=== PATIENT | female | born 1975 | race American Indian/Alaskan Native ===

== ENCOUNTER 2018-05-14 16:09 | Inpatient (IN) | payer OTHER ==
[2018-05-14] MEDS ORDERED: Sodium Chloride 0.9% 1,000 ML IV STA (16:34)
--- NOTE | 2018-05-14 16:42 | ED PDOC ---
Arrival/HPI - General Chief Complaint: Abdominal Pain Time Seen by Provider: 05/14/18 16:34 Historian: Patient, EMS - History of Present Illness Narrative History of Present Illness (Text): 05/14/18 16:35 pt p/w 2days onset of not feeling well, started with 5 episodes of vomiting yesterday, with mid-lower abd cramps, pt presented herself to her local ER down in [place]. Pt was evaluated and treated and discharged home; pt was due for a cruise today and while in the boat, pt continue to feel malaise/weak/ generalized fatigue; pt states she has a hard time lifting her arms and legs; pt [facility] her [facility] and was started on fluids and was about to be started on abx but was brought to emergency department for further eval before the abx could be given; pt states ? subjective fever, chills, no sweats, no chest pain/shortness of breath/palpitations, no abd pain/cramps today , + diarrhea x 1-2 episodes yesterday, NON-bloody, no urinary changes, no fall/ trauma/sick contact; pt is here for further eval. pt's without other complaints. pt denied LOC pt felt mild dizziness/lightheadedness, mild headache [place] Pt with hx of asthma; IBS (flares occurring every few months) Time/Duration: < week (2 days) Symptom Onset: Sudden Symptom Course: Unchanged Activities at Onset: Rest Context: Other (on cruise ship) Past Medical History - Provider Review Nursing Documentation Reviewed: Yes - Travel History Have you recently traveled outside [place] w/in the past 3 mons?: No - Past History Past History: Non-Contributing - Infectious Disease Hx of Infectious Diseases: None - Reproductive Currently : Unknown - Cardiac Hx Cardiac Disorders: No - Pulmonary Hx Respiratory Disorders: Yes Hx Asthma: Yes - Neurological Hx Neurological Disorder: No - HEENT Hx HEENT Disorder: No - Renal Hx Renal Disorder: No - Endocrine/Metabolic Hx Endocrine Disorders: No - Hematological/Oncological Hx Blood Disorders: No - Integumentary Hx Dermatological Disorder: No - Musculoskeletal/Rheumatological Hx Musculoskeletal Disorders: No - Gastrointestinal Hx Gastrointestinal Disorders: Yes Hx Gastroesophageal Reflux: Yes - Genitourinary/Gynecological Hx Genitourinary Disorders: No - Psychiatric Hx Psychophysiologic Disorder: Yes Hx Depression: Yes Hx Substance Use: No - Surgical History Hx Tubal Ligation: Yes Family/Social History - Physician Review Nursing Documentation Reviewed: Yes Family/Social History: No Known Family HX Smoking Status: Current Some Days Smoker Hx Alcohol Use: Yes Frequency of alcohol use: Socially Hx Substance Use: No Hx Substance Use Treatment: No Allergies/Home Meds Allergies/Adverse Reactions: Allergies No Known Allergies Allergy (Verified 05/14/18 16:15) Home Medications: Home Meds Medication Instructions Recorded Confirmed Albuterol HFA [Ventolin HFA 90 2 puff NEB Q6 PRN 05/14/18 05/14/18 mcg/actuation (8 g)] Dicyclomine [Bentyl] 20 mg PO DAILY 05/14/18 05/14/18 Pantoprazole Sodium [Protonix] 40 mg PO DAILY 05/14/18 05/14/18 Review of Systems - Review of Systems Constitutional: Fatigue, Fevers Eyes: Normal ENT: Normal. absent: Sore Throat Respiratory: Normal. absent: SOB Cardiovascular: Normal. absent: Chest Pain Gastrointestinal: Abdominal Pain, Diarrhea, Nausea, Vomiting, Appetite Changes Genitourinary Female: Normal Musculoskeletal: Normal Skin: Normal Neurological: Dizziness. absent: Headache Endocrine: Normal Hemo/Lymphatic: Normal Psychiatric: Normal Physical Exam - Physical Exam Narrative Physical Exam (Text): 05/14/18 16:40 General: alert/awake, GCS = 15, oriented x 3, resting in bed, uncomfortable, cooperative, interactive; NAD; very fatigued/weak appearing Head: NC/AT EYE: PERRLA, EOMI, sclera anicteric, no nystagmus, no photophobia; visual field intact b/l Facial: WNL Oral: uvula/tongue are midline, no exudate/lesions, no drooling/stridor, no dysphonia; fair dentitions; DRY oral mucosa NECK: intact ROM, no midline tenderness, no nuchal rigidity, no meningeal signs ; no step off Chest: CTA b/l, no w/r/r; no tachypenia, no accessory muscle use noted Cardiac: +S1, +S2, no m/r/r, no tachycardia Abdominal: +BS, soft/nd/nt, well nourished/morbid obese patient; no masses/ rebound/guarding/rigidity; no cabrera's sign, no mcburney's point tenderness Extremities: intact ROM, strength 5/5 grossly intact in all limbs, neurovasc intact b/l; + ambulatory; reflex +2/2; no pitting edema/swelling b/l; no Gerry' s sign b/l BACK: no step off, no midline tenderness, NO crepitus, no gross deformities noted; Intact ROM SKIN: cap refill ~ 1-2 sec, no ulcerations, no petechiae, no rashes; no gross pallor NEURO: CNII-XII WNL, no facial asymmetries, no slurr speech, oriented x 3 NIH stroke scale ~ 0 Psych: normal insight, flat affect; follows command with ease Vital Signs Reviewed: Yes Vital Signs Temp Pulse Resp BP Pulse Ox 05/14/18 21:05 99.0 F 86 18 118/75 96 05/14/18 17:32 71 18 125/65 99 05/14/18 16:16 99.9 F H 80 17 153/87 H 97 Temperature: Febrile Blood Pressure: Hypertensive Pulse: Regular Respiratory Rate: Normal Appearance: Positive for: Well-Appearing, Ill-Appearing, Uncomfortable. No: Non -Toxic, Comfortable, Unkept Pain Distress: None Mental Status: Positive for: Alert and Oriented X 3 - Systems Exam Head: Present: Atraumatic, Normocephalic Medical Decision Making ED Course and Treatment: 05/14/18 16:40 Impression: general weakness, n/v/d i have consider all the differential diagnosis regarding pt's chief medical complaints/clinical findings, including but are not limited to: r/o infection/ bacteremia, n/v/d, weakness A/P: general weakness, n/v/d - labs - cultures - iv - xray - ct - supportive care - observe/reevaluation 1749 i was notified that nurses have a hard time obtaining blood tests/IV placement i was able to place a 20g IV to right EJ 05/14/181899 pt is currently stable, still feeling very weak and tired/fatigued pt is awaiting her ct results pending final disposition 2049 pt + vomited pt continue to have body malaise and weakness/fatigue pt complains of right neck pain due to IV placement due to pt's continued malaise/weakness complaint, and vomiting, possible IBS flare, will recommend patient for admission paging Dr Ho 05/14/[address] Ho, made aware, agrees with admission/observation pt is made aware of her medical results pt agrees with admission pt states she feels jittery/anxious at the moment Re-evaluation Time: 19:00 Reassessment Condition: Improving,but remains with symptoms - Lab Interpretations Lab Results: 05/14/18 18:10 05/14/18 18:10 Lab Results 05/14/18 18:10: pO2 80 H, VBG pH 7.39, VBG pCO2 44.0, VBG HCO3 26.6, VBG Total CO2 28.0, VBG O2 Sat (Calc) 98.0 H, VBG Base Excess 1.2, VBG Potassium 3.6, Sodium 136.0, Chloride 103.0, Glucose 102, Lactate 0.9, FiO2 21.0, Venous Blood Potassium 3.6 05/14/18 18:10: Sodium 140, Chloride 101, Potassium 3.7, Carbon Dioxide 26, Anion Gap 16, BUN 16, Creatinine 0.7, Est GFR ( Amer) > 60, Est GFR (Non- Af Amer) > 60, Random Glucose 100, Calcium 9.0, Magnesium 2.0, Total Bilirubin 0.3, AST 27, ALT 37, Alkaline Phosphatase 60, Troponin I < 0.01, Total Protein 7.5, Albumin 4.2, Globulin 3.3, Albumin/Globulin Ratio 1.3, Lipase 84 05/14/18 18:10: PT 12.4, INR 1.09 H, APTT 26.9 05/14/18 18:10: WBC 9.2, RBC 4.22, Hgb 10.3 L, Hct 32.7 L, MCV 77.5 L, MCH 24.4 L, MCHC 31.5, RDW 16.4 H, Plt Count 341, MPV 8.4, Gran % 79.5 H, Lymph % (Auto) 13.2 L, [place] % (Auto) 7.3 H, Eos % (Auto) 0.0 L, Baso % (Auto) 0.0, Gran # 7.34 H, Lymph # (Auto) 1.2, [place] # (Auto) 0.7 H, Eos # (Auto) 0.0, Baso # (Auto) 0.00 05/14/18 17:00: Urine Color Yellow, Urine Appearance Sl cloudy, Urine pH 6.0, Ur Specific [place] >= 1.030, Urine Protein 30 H, Urine Glucose (UA) Negative, Urine Ketones 40 H, Urine Blood Large H, Urine Nitrate Negative, Urine Bilirubin Negative, Urine Urobilinogen 0.2, Ur Leukocyte Esterase Negative, Urine RBC 5 - 10, Urine WBC 2 - 5, Ur Epithelial Cells 4 - 5, Urine Bacteria Few I have reviewed the lab results: Yes Interpretation: Abnormal lab values (all labs WNL, abnl Urinalysis - likely menstrual cycle) - RAD Interpretation Narrative RAD Interpretations (Text): 05/14/2018 19:58 Abd/Pelvis CT IMPRESSION: Small fat containing umbilical hernia. Dictator: Nilda Johnson MD 05/14/18 20:56 Chest X-Ray - NAD, prelim result Radiology Orders: 05/14/18 16:35 ABD & PELVIS IV CONTRAST ONLY [CT] Stat 05/14/18 16:45 CHEST TWO VIEWS (PA/LAT) [RAD] Stat Deicer Inspector Pneumatic: ED Physician, Radiologist - EKG Interpretation EKG Interpretation (Text): 05/14/18 20:57 NSR at 85 bpm, normal axis, no ectopy, right atrial enlargement, no st-t changes , BORDERLINE EKG; no old ekg to compare with Interpreted by ED Physician: Yes Type: 12 lead EKG Comparison: No previous EKG avail. - Medication Orders Current Medication Orders: Diphenhydramine HCl (Benadryl) 25 mg IVP STAT STA Stop: 05/14/18 21:15 Sodium Chloride (Sodium Chloride 0.45%) 1,000 mls @ 80 mls/hr IV .[id number] LADONNA Lorazepam (Ativan) 1 mg IVP ONCE ONE PRN Reason: Protocol Stop: 05/14/18 21:15 Discontinued Medications Acetaminophen (Tylenol 325mg Tab) 650 mg PO STAT STA Stop: 05/14/18 16:49 Last Admin: 05/14/18 17:14 Dose: 650 mg Sodium Chloride (Sodium Chloride 0.9%) 1,000 mls @ 1,000 mls/hr IV .Q1H STA Stop: 05/14/18 17:33 Last Admin: 05/14/18 16:58 Dose: 1,000 mls/hr eMAR Start Stop Document 05/14/18 16:58 SF (Rec: 05/14/18 16:58 SF [facility] [id number]) Intravenous Solution Start Date 05/14/18 Start Time 16:58 End Date 05/14/18 End time 17:58 Total Infusion Time 60 Morphine Sulfate (Morphine) 4 mg IVP STAT STA Stop: 05/14/18 20:55 Ondansetron HCl (Zofran Inj) 4 mg IVP STAT STA Stop: 05/14/18 16:35 Last Admin: 05/14/18 16:58 Dose: 4 mg IVP Administration Document 05/14/18 16:58 SF (Rec: 05/14/18 16:58 SF [facility] [id number]) Charges for Administration # of IVP Administrations 1 Ondansetron HCl (Zofran Inj) 4 mg IVP STAT STA Stop: 05/14/18 21:04 Pantoprazole Sodium (Protonix Inj) 40 mg IVP STAT STA Stop: 05/14/18 16:35 Last Admin: 05/14/18 17:14 Dose: 40 mg IVP Administration Document 05/14/18 17:14 SF (Rec: 05/14/18 17:14 SF [facility] [place]) Charges for Administration # of IVP Administrations 1 Disposition/Present on Arrival - Present on Arrival Any Indicators Present on Arrival: No History of DVT/PE: No History of Uncontrolled Diabetes: No Urinary Catheter: No History of Decub. Ulcer: No History Surgical Site Infection Following: None - Disposition Have Diagnosis and Disposition been Completed?: Yes Diagnosis: Intractable nausea and vomiting, Dehydration, Weakness, Diarrhea Disposition: HOSPITALIZED Disposition Time: 21:00 Patient Plan: Admission, Observation Condition: STABLE Discharge Instructions (ExitCare): Weakness (ED) Print Language: JAMAICAN Referrals: PCP,NO [Primary Care Provider] - Follow up with primary Forms: [employer] (Czech)
[2018-05-14 17:28] LABS: URINE BILIRUBIN NEGATIVE (NEGATIVE); URINE BLOOD LARGE (NEGATIVE); URINE GLUCOSE (UA) NEGATIVE (NEGATIVE); URINE LEUKOCYTE ESTERASE NEGATIVE Leu/uL (NEGATIVE); URINE PROTEIN 30 mg/dL (<30 mg/dL); URINE UROBILINOGEN 0.2 E.U./dL (<1 E.U./dL)
[2018-05-14 17:33] LABS: URINE APPEARANCE SL CLOUDY (CLEAR); URINE COLOR YELLOW (YELLOW)
[2018-05-14 17:43] LABS: URINE BACTERIA FEW (NEG)
[2018-05-14 18:21] LABS: GRAN # 7.34 (1.4-6.5); GRAN % 79.5 % (50.0-68.0); HEMOGLOBIN 10.3 g/dL (12.0-16.0); LYMPH # 1.2 (1.2-3.4); LYMPH % 13.2 % (22.0-35.0); MEAN CELL VOLUME 77.5 fl (80.0-105.0); MEAN CORPUSCULAR HEMOGLOBIN 24.4 pg (25.0-35.0); MEAN CORPUSCULAR HGB CONC 31.5 g/dl (31.0-37.0); MEAN PLATELET VOLUME 8.4 fl (7.0-11.0); MONO # 0.7 (0.1-0.6); MONO % 7.3 % (1.0-6.0); RBC 4.22 10^6/uL (3.5-6.1); RED CELL DISTRIBUTION WIDTH 16.4 % (11.5-14.5); WHITE BLOOD COUNT 9.2 10^3/ul (4.5-11.0)
[2018-05-14 18:22] LABS: VENOUS BLOOD GAS BASE EXCESS 1.2 mmol/L (0.0-2.0); VENOUS BLOOD GAS PO2 80 mm/Hg (30-55); VENOUS BLOOD PH 7.39 (7.32-7.43)
[2018-05-14 18:30] LABS: ALB/GLOB RATIO 1.3 (1.1-1.8); ALBUMIN 4.2 g/dL (3.0-4.8); ALT/SGPT 37 U/L (7-56); AST/SGOT 27 U/L (14-36); BLOOD UREA NITROGEN 16 mg/dL (7-21); GFR NON-AFRICAN AMERICAN > 60; LIPASE 84 U/L (23-300)
[2018-05-14 18:34] LABS: INR 1.09 (0.93-1.08); PARTIAL THROMBOPLASTIN TIME 26.9 Seconds (25.1-36.5); PROTHROMBIN TIME 12.4 SECONDS (9.4-12.5)
[2018-05-14 18:41] LABS: TROPONIN I < 0.01 ng/mL
[2018-05-14] MEDS ORDERED: Iohexol 350 MG/100 ML VIAL ONE (19:08)
[2018-05-14] MEDS ORDERED: Morphine 2 mg/ml ISec IVP STA (20:53)
[2018-05-14] MEDS ORDERED: Morphine 4 mg/ml ISec IVP STA (20:54)
[2018-05-14] MEDS ORDERED: DiphenhydrAMINE 50 mg/ml Inj IVP STA (21:14)
[2018-05-14] MEDS: Sodium Chloride 0.45% 1,000 ML IV SCH (22:24)
[2018-05-15 00:54] VITALS: RESP 20; BMI 36.6
[2018-05-15 06:45] LABS: BASO # 0.01 K/mm3 (0.0-2.0); BASO % 0.1 % (0.0-3.0); EOS % 0.3 % (1.5-5.0); GRAN # 4.4 (1.4-6.5); GRAN % 61.4 % (50.0-68.0); HEMOGLOBIN 9.5 g/dL (12.0-16.0); LYMPH # 2.3 (1.2-3.4); LYMPH % 32.6 % (22.0-35.0); MEAN CELL VOLUME 78.5 fl (80.0-105.0); MEAN CORPUSCULAR HGB CONC 30.5 g/dl (31.0-37.0); MEAN PLATELET VOLUME 8.4 fl (7.0-11.0); MONO # 0.4 (0.1-0.6); MONO % 5.6 % (1.0-6.0); RBC 3.96 10^6/uL (3.5-6.1); RED CELL DISTRIBUTION WIDTH 16.5 % (11.5-14.5); WHITE BLOOD COUNT 7.2 10^3/ul (4.5-11.0)
[2018-05-15 07:16] LABS: ALB/GLOB RATIO 1.2 (1.1-1.8); ALBUMIN 3.6 g/dL (3.0-4.8); ALT/SGPT 32 U/L (7-56); AST/SGOT 25 U/L (14-36); BLOOD UREA NITROGEN 15 mg/dL (7-21); CALCIUM 8.3 mg/dL (8.4-10.5); GFR NON-AFRICAN AMERICAN > 60
--- NOTE | 2018-05-15 08:33 | RAD ---
HISTORY: n/v/d, r/o bacteremia COMPARISON: No prior. TECHNIQUE: Chest PA and lateral FINDINGS: LUNGS: No active pulmonary disease. PLEURA: No significant pleural effusion identified. No pneumothorax apparent. CARDIOVASCULAR: Normal. OSSEOUS STRUCTURES: No significant abnormalities. VISUALIZED UPPER ABDOMEN: Normal. OTHER FINDINGS: None. IMPRESSION: No active disease.
[2018-05-15] MEDS: Morphine 2 mg/ml ISec IVP PRN ×2 (10:14→15:00)
[2018-05-15] MEDS ORDERED: Albuterol-Ipratrop 3 mg / 0.5 (3 ml) UD ONE (10:32)
[2018-05-15 10:49] LABS: ARTERIAL BLOOD GAS O2 SAT 97.6 % (95-98); ARTERIAL BLOOD GAS PCO2 57 mm/Hg (35-45); ARTERIAL BLOOD GAS PH 7.25 (7.35-7.45); ARTERIAL BLOOD GAS TCO2 26.7 mmol.L (22-28)
[2018-05-15] MEDS: Levalbuterol 0.63 MG/3 ML Inhal Soln UD IH SCH ×3 (11:03→20:55)
--- NOTE | 2018-05-15 11:04 | CP.PCM.CON ---
<Darinel Jacome - Last Filed: 05/15/18 10:57> History of Present Illness - History of Present Illness History of Present Illness: PGY5 GI Fellow Consult Note Patient is a 42yo female with PMHx significant for asthma and IBS who presented to the ED from a cruise ship for nausea, vomiting and abdominal pain. The patient lives outside of [place] and is established with providers in that area. She had not been feeling well since Wednesday (2 days [employer]) with diffuse abdominal cramping, nausea/vomiting and was seen and evaluated at a hospital in [place] where she states she was given Haldol and Ativan (medications per patient with no known psych history) and discharged home. She felt very fatigued for the next day and slept on and off for several hours. Thinking she was well enough to go on a cruise, she drove to [place] and boarded her ship. On board, she felt ill and went to the [facility] who recommended patient be evaluated at our facility. Denies any fever, chills, diarrhea, weight loss, rectal bleeding, dysuria. 12 system ROS performed and negative except where stated. PMHx: See HPI PSHx: tubal ligation FHx: Discussed with patient and she denies any significant family history Social: Denies tobacco, EtOH or illicit drug use Endo: Colonoscopy 3 years ago - unremarkable per patient; EGD in past year - unremarkable per patient Past Patient History - Infectious Disease Hx of Infectious Diseases: None - Past Social History Smoking Status: Current Some Days Smoker - CARDIAC Hx Cardiac Disorders: No - PULMONARY Hx Respiratory Disorders: Yes Hx Asthma: Yes - NEUROLOGICAL Hx Neurological Disorder: No - HEENT Hx HEENT Problems: No - RENAL Hx Chronic Kidney Disease: No - ENDOCRINE/METABOLIC Hx Endocrine Disorders: No - HEMATOLOGICAL/ONCOLOGICAL Hx Blood Disorders: No - INTEGUMENTARY Hx Dermatological Problems: No - MUSCULOSKELETAL/RHEUMATOLOGICAL Hx Musculoskeletal Disorders: No Hx Falls: No - GASTROINTESTINAL Hx Gastrointestinal Disorders: Yes Hx Gastroesophageal Reflux: Yes - GENITOURINARY/GYNECOLOGICAL Hx Genitourinary Disorders: No - PSYCHIATRIC Hx Psychophysiologic Disorder: Yes Hx Depression: Yes Hx Substance Use: No - SURGICAL HISTORY Hx Surgeries: Yes Meds Allergies/Adverse Reactions: Allergies Allergy/AdvReac Type Severity Reaction Status Date / Time No Known Allergies Allergy Verified 05/14/18 16:15 - Medications Medications: Current Medications Sodium Chloride (Sodium Chloride 0.45%) 1,000 mls @ 80 mls/hr IV .[id number] [facility] Last Admin: 05/14/18 22:24 Dose: 80 mls/hr Ketorolac Tromethamine (Toradol) 30 mg IVP Q6 PRN PRN Reason: Pain, moderate (4-7) Last Admin: 05/15/18 09:10 Dose: 30 mg Levalbuterol HCl (Xopenex) 0.63 mg IH [id number] [facility] Methylprednisolone (Solu-Medrol) 40 mg IVP Q8 [facility] Morphine Sulfate (Morphine) 1 mg IVP Q4H PRN PRN Reason: Pain, moderate (4-7) Last Admin: 05/15/18 10:14 Dose: 1 mg Pantoprazole Sodium (Protonix Inj) 40 mg IVP DAILY [facility] Last Admin: 05/15/18 10:15 Dose: 40 mg Physical Exam - Constitutional Appears: Non-toxic, No Acute Distress Additional comments: obese - Eye Exam Eye Exam: EOMI, PERRL - ENT Exam ENT Exam: Mucous Membranes Moist - Respiratory Exam Respiratory Exam: Clear to Auscultation Bilateral. absent: Rales, Rhonchi, Wheezes - Cardiovascular Exam Cardiovascular Exam: RRR, +S1, +S2 - GI/Abdominal Exam GI & Abdominal Exam: Normal Bowel Sounds, Soft. absent: Distended, Firm, Guarding, Mass, Organomegaly, Rigid, Tenderness - Extremities Exam Extremities exam: Positive for: normal inspection. Negative for: pedal edema - Neurological Exam Neurological exam: Alert, Oriented x3 - Psychiatric Exam Psychiatric exam: Normal Affect, Normal Mood - Skin Skin Exam: Dry, Warm Results - Vital Signs Recent Vital Signs: Last Vital Signs Temp 98.4 F 05/15/18 06:00 Pulse 84 05/15/18 06:00 Resp 20 05/15/18 06:00 BP 113/64 05/15/18 06:00 Pulse Ox 96 05/15/18 06:00 - Labs Result Diagrams: 05/15/18 06:00 05/15/18 06:00 Labs: Laboratory Results - last 24 hr 05/15/18 05/15/18 05/15/18 06:00 06:00 10:31 WBC 7.2 D RBC 3.96 Hgb 9.5 L Hct 31.1 L MCV 78.5 L MCH 24.0 L MCHC 30.5 L RDW 16.5 H Plt Count 327 MPV 8.4 Gran % 61.4 Lymph % (Auto) 32.6 [place] % (Auto) 5.6 Eos % (Auto) 0.3 L Baso % (Auto) 0.1 Gran # 4.40 Lymph # (Auto) 2.3 [place] # (Auto) 0.4 Eos # (Auto) 0.0 Baso # (Auto) 0.01 pCO2 pO2 HCO3 ABG pH ABG Total CO2 ABG O2 Saturation ABG Base Excess ABG Potassium Glucose Lactate FiO2 Sodium 140 Potassium 3.6 Chloride 104 Carbon Dioxide 27 Anion Gap 13 BUN 15 Creatinine 0.7 Est GFR ( Amer) > 60 Est GFR (Non-Af Amer) > 60 POC Glucose (mg/dL) 114 H Random Glucose 85 Calcium 8.3 L Total Bilirubin 0.3 AST 25 ALT 32 Alkaline Phosphatase 46 Total Protein 6.5 Albumin 3.6 Globulin 2.9 Albumin/Globulin Ratio 1.2 Arterial Blood Potassium 05/15/18 10:40 WBC RBC Hgb Hct MCV MCH MCHC RDW Plt Count MPV Gran % Lymph % (Auto) [place] % (Auto) Eos % (Auto) Baso % (Auto) Gran # Lymph # (Auto) [place] # (Auto) Eos # (Auto) Baso # (Auto) pCO2 57 H pO2 82.0 HCO3 25.0 ABG pH 7.25 L ABG Total CO2 26.7 ABG O2 Saturation 97.6 ABG Base Excess -3.1 L ABG Potassium 3.0 L Glucose 125 H Lactate 0.9 FiO2 35.0 Sodium 142.0 Potassium Chloride 110.0 H Carbon Dioxide Anion Gap BUN Creatinine Est GFR ( Amer) Est GFR (Non-Af Amer) POC Glucose (mg/dL) Random Glucose Calcium Total Bilirubin AST ALT Alkaline Phosphatase Total Protein Albumin Globulin Albumin/Globulin Ratio Arterial Blood Potassium 3.0 L Assessment & Plan - Assessment and Plan (Free Text) Assessment: Patient is a 42yo female with PMHx significant for asthma and IBS who presented to the ED from a cruise ship for nausea, vomiting and abdominal pain -Abdominal pain, resolved Plan: -Patient's abdominal pain has resolved at time of examination -She is requesting diet order - will give regular diet now -CT and lab work reviewed - unremarkable per my interpretation -OK for D/C from GI standpoint with outpatient follow up as needed with patient' s GI in [place] - Date & Time Date: 05/15/18 Time: 07:00 <IvaOmari - Last Filed: 05/15/18 18:42> Meds - Medications Medications: Current Medications Sodium Chloride (Sodium Chloride 0.45%) 1,000 mls @ 80 mls/hr IV .[id number] [facility] Last Admin: 05/15/18 18:17 Dose: 80 mls/hr Ketorolac Tromethamine (Toradol) 30 mg IVP Q6 PRN PRN Reason: Pain, moderate (4-7) Last Admin: 05/15/18 16:03 Dose: 30 mg Levalbuterol HCl (Xopenex) 0.63 mg IH [id number] [facility] Last Admin: 05/15/18 11:03 Dose: 0.63 mg Lorazepam (Ativan) 0.5 mg PO Q8 PRN; Protocol PRN Reason: Anxiety Last Admin: 05/15/18 13:24 Dose: 0.5 mg Methylprednisolone (Solu-Medrol) 40 mg IVP Q8 [facility] Last Admin: 05/15/18 14:31 Dose: 40 mg Morphine Sulfate (Morphine) 1 mg IVP Q4H PRN PRN Reason: Pain, moderate (4-7) Last Admin: 05/15/18 15:00 Dose: 1 mg Pantoprazole Sodium (Protonix Inj) 40 mg IVP DAILY [facility] Last Admin: 05/15/18 10:15 Dose: 40 mg Results - Vital Signs Recent Vital Signs: Last Vital Signs Temp 98.4 F 05/15/18 06:00 Pulse 84 05/15/18 06:00 Resp 20 05/15/18 06:00 BP 113/64 05/15/18 06:00 Pulse Ox 96 05/15/18 06:00 - Labs Result Diagrams: 05/15/18 06:00 05/15/18 06:00 Attending/Attestation - Attestation I have personally seen and examined this patient.: Yes I have fully participated in the care of the patient.: Yes I have reviewed all pertinent clinical information: Yes Notes (Text): 05/15/18 18:41 42 year old female who presents with nausea, vomiting and abdominal pain, now resolved. CT unremarkable. Continue PPI. diet as tolerated. Will sign off.
--- NOTE | 2018-05-15 11:06 | PCM.RRT ---
<Sobia Arias - Last Filed: 05/15/18 10:54> [facility] [facility] Nurse Assessment - Situation Date: 05/15/18 Time [facility] was called: 10:27 [employer] Responder Arrival Time: 10:30 [employer] Location:: [address] [place] [address] Room Number: [id number] [facility] Reason for Call: Respiratory Distress [facility] Called By: RN - IV IV Inserted during [facility]?: No - Respiratory Oxygen Delivery Method: Room Air Received Nebulizer Treatments:: Yes - Medication Medications Administered During [facility]: SoluMedrol 125mg IVP, Duoneb 3ml inh x 2 - Diagnostic Test Ordered EKG: Yes Chest X-Ray: Yes CT Scan: No Other Diagnostic Test Ordered: ABG SHOCK, DRUG SCREEN, ALCOHOL, CARDIO, DDIMER - Stat Labs Ordered [facility] Stat Labs Ordered: CBC, BMP, TROPONIN, LACTIC ACID, ABG CPR started during [facility]?: No - Vital Signs Vital Sign: Rapid Response Vital Sign Blood Pressure 116/63 Pulse Rate 125 Oxygen Saturation 88 - Finger Stick Blood Glucose Finger Stick Blood Glucose: 114 - Time [facility] Ended Time [facility] Ended: 10:50 - Vital Signs at end of [employer] Vital Signs at end of [employer] [facility]: Rapid Response End Vital Sign Blood Pressure 131/84 Pulse Rate 120 Respiratory Rate 20 O2 Sat by Pulse Oximetry 95 - Recommendations Notifications: Attending Physician - Neurological Status (Select all that apply): Alert - Respiratory Oxygen Delivery Method: Nasal Cannula @L/min (3.5L) - Constitutional Appears: In Acute Distress (SOB) - Head Head Exam: ATRAUMATIC, NORMAL INSPECTION, NORMOCEPHALIC - Eyes Eye Exam: EOMI, Normal appearance, PERRL. absent: Conjunctival injection, Scleral icterus - Respiratory Exam Respiratory Exam: Wheezes, Respiratory Distress. absent: Accessory Muscle Use, Rales, Rhonchi - Cardiovascular Exam Cardiovascular Exam: Tachycardia, +S1, +S2. absent: Murmur - GI/Abdominal Exam GI & Abdominal Exam: Soft - Neurological Exam Neurological Exam: Alert, Awake, Oriented x3 - Extremities Exam Extremities Exam: Normal Inspection. absent: Calf Tenderness, Pedal Edema Plan - Assessment of Findings&Treatment Plan [facility] [facility] called as patient was acutely SOB this AM. House doc, attending physicians, and residents prosthodontist responded immediately. Patient was sitting up in bed complaining of shortness of breath and audibly wheezing. Patient was given 2 stat treatments of Duoneb and given 125mg solumedrol. STAT labs and CXR were ordered. Patient's ABG was evidnet of respiratory acidosis. PMD Dr. Ho was contacted who ordered Xopenex q4 and Solumedrol [address] Silverman consulted. Vitals at end of [facility] [facility]: BP 134/84 HR 128 O2 95%. Patient was also complaining of anxiety and was given one dose of 0.25mg xanax. <Sathya Carrillo - Last Filed: 05/15/18 13:39> [facility] [facility] Nurse Assessment - Vital Signs Vital Sign: Rapid Response Vital Sign Blood Pressure 116/63 Pulse Rate 125 Oxygen Saturation 88 - Vital Signs at end of [employer] [facility] Vital Signs at end of [facility]: Rapid Response End Vital Sign Blood Pressure 131/84 Pulse Rate 120 Respiratory Rate 20 O2 Sat by Pulse Oximetry 95 Attending/Attestation - Attestation I have personally seen and examined this patient.: Yes I have fully participated in the care of the patient.: Yes I have reviewed all pertinent clinical information, including history, physical exam and plan: Yes Notes (Text): 05/15/18 13:34 [facility] called for shortness of breath. +Wheezing and tachycardia on exam. HR 125. O2 on RA 88. CXR/ABG ordered. Xopenex and steroids. D-dimer also ordered. PMD notified. Pulmonary evaluation was requested. Discharge is held for now.
[2018-05-15 11:55] LABS: TROPONIN I < 0.01 ng/mL
--- NOTE | 2018-05-15 13:42 | CARD ---
APPROVED REPORT EKG Measurement Heart [id number] <Conclusion> Sinus tachycardia Otherwise normal ECG
--- NOTE | 2018-05-15 13:46 | CARD ---
APPROVED REPORT EKG Measurement Heart [id number] CT 136P71 [id number] <Conclusion> Normal sinus rhythm Right atrial enlargement Borderline ECG
[2018-05-15] MEDS: MethylPREDNISolone 40 mg Vial IVP SCH ×2 (14:31→22:02)
--- NOTE | 2018-05-15 15:49 | RAD ---
HISTORY: SOB RAPIDRES COMPARISON: No comparison chest 05/14/2018 FINDINGS: LUNGS: No active pulmonary disease. PLEURA: No significant pleural effusion identified, no pneumothorax apparent. CARDIOVASCULAR: Normal. OSSEOUS STRUCTURES: No significant abnormalities. VISUALIZED UPPER ABDOMEN: Normal. OTHER FINDINGS: None. IMPRESSION: No active disease.
--- NOTE | 2018-05-15 16:50 | CT ---
PROCEDURE: CT Abdomen and Pelvis with contrast HISTORY: Abdominal pain, n/v/d COMPARISON: None. TECHNIQUE: Contiguous helical/ transaxial sections of the and pelvis performed following injection of approximately 95 cc Omnipaque 350 contrast material. Additional 2D sagittal and coronal reformats provided. Radiation dose: Total exam DLP = 1173.16 mGy-cm. This CT exam was performed using one or more of the following dose reduction techniques: Automated exposure control, adjustment of the mA and/or kV according to patient size, and/or use of iterative reconstruction technique. FINDINGS: LOWER THORAX: Mild atelectasis/ scarring changes left lingular region. Lung bases otherwise clear. Heart size upper limits of normal. No significant pericardial effusion. Tiny hiatal hernia. LIVER: Liver is enlarged measuring over 20 cm in CC dimension. No obvious hepatic mass collection or calcification. Minimal fatty hepatic infiltration. GALLBLADDER AND BILE DUCTS: Gallbladder physiologically distended. No evidence of intraluminal gallbladder calculi. PANCREAS: Unremarkable. No gross lesion or ductal dilatation. SPLEEN: Unremarkable. ADRENALS: No adrenal lesions. KIDNEYS AND URETERS: Kidneys demonstrate symmetric nephrograms. No evidence of nephrolithiasis or hydronephrosis. VASCULATURE: Unremarkable. No aortic aneurysm. BOWEL: Unremarkable. No obstruction. No gross mural thickening. APPENDIX: Normal appendix PERITONEUM: Unremarkable. No free fluid. No free air. There is mild diastases of the mid anterior abdominal wall associated with a small fat containing umbilical hernia. LYMPH NODES: Unremarkable. No enlarged lymph nodes. BLADDER: Mild bladder wall thickening likely due to incomplete urinary bladder distention however Clinical correlation to rule out cystitis. REPRODUCTIVE: Uterus exhibits somewhat lobular contour with what appears represent small hyperdense fibroid along the left fundal/body junction and another in the right lower uterine segment. The cervix is somewhat bulbous in contour is well. Follow-up pelvic ultrasound recommended for further evaluation. BONES: Minor arm multilevel degenerative spondylosis. No acute compression fractures. OTHER FINDINGS: None. IMPRESSION: Mild hepatomegaly. Suspect uterine fibroids with slight bulbous appearance of the cervix. Recommend followup pelvic ultrasound. Mild diastases of the mid anterior abdominal wall associated with a small fat containing umbilical hernia.
[2018-05-15] MEDS: Sodium Chloride 0.45% 1,000 ML IV SCH (18:17)
--- NOTE | 2018-05-15 19:24 | HP ---
HISTORY OF PRESENT ILLNESS: I was called to the ER to see Nehal. She was on a cruise ship. She had five episodes of vomiting the other day, abdominal cramps. She went to the emergency room and felt drowsier. She was treated, discharged home, was supposed to be on a cruise ship today, got very fatigued that happened again. She got very tired of even lifting her luggage. She started to go on board and could not do it. She ended up in our emergency room with diarrhea and episodes of nausea, vomiting, and cramping, nonbloody and we kept her overnight in observation status, as our plan with IV fluids, medications and n.p.o. because she is throwing up and antianxiety medication. PAST MEDICAL HISTORY: Asthma, irritable bowel syndrome, and flare-ups every few months. This is a sudden onset of this. She has gastroesophageal reflux. She also has a history of depression. She has a history of tubal ligation. FAMILY HISTORY: No known family history. SOCIAL HISTORY: She still smokes cigarettes. Occasional alcohol. No substance abuse. ALLERGIES: NO KNOWN DRUG ALLERGY. MEDICATIONS: She is on albuterol as needed, Bentyl, and Protonix as needed. REVIEW OF SYSTEMS: She is very tired as she had fevers. No vision changes, no hearing changes, no sore throat, no shortness of breath, no cough, no chest pain, no palpitations. She has abdominal pain. She had diarrhea. She had nausea and vomiting. She has appetite changes, abdominal cramping. No problems urinating. For the most part of skin is intact, she says no rashes or ulcers. She is a little bit dizzy from all the throwing up, but no headache. No anxiety or depression. PHYSICAL EXAMINATION: GENERAL: She has a 99 temperature, 80 pulse, 17 respiratory rate, 153/87 blood pressure, and 97% O2 sat on room air. GENERAL: She is alert and oriented x3. Cranial nerves II through XII grossly intact. HEENT: Head is atraumatic and normocephalic. Extraocular muscles are intact. Pupils are equally reactive to light and accommodation. Throat is dry. NECK: Supple. HEART: Regular rate. Normal S1 and S2. LUNGS: Decreased breath sounds, but clear to auscultation. No wheezing, no rhonchi, no rales. ABDOMEN: Mildly distended. There are bowel sounds, but they are high pitched and distant, but no guarding, no rebound, a little bit discomfort from cramping. EXTREMITIES: No edema. Good range of motion. NEUROLOGIC: Cranial nerves II through XII grossly intact. Normal speech. Normal neurological exam. Normal insight and understands what is going on. She is here for intractable nausea, vomiting, weakness, history of IBS with abdominal cramping. For nausea and vomiting, she will be put in for viral gastroenteritis type of picture, IV fluids, n.p.o., Protonix. We are going to watch her overnight and see how she does and if she does well, we will discharge her. Praveen Ho DO MTDD
[2018-05-15 19:45] LABS: BENZODIAZEPINES, UR NEGATIVE (NEGATIVE)
[2018-05-15 19:46] LABS: BARBITURATES, UR NEGATIVE (NEGATIVE); OPIATES, UR POSITIVE (NEGATIVE); PHENCYCLIDINE, UR NEGATIVE (NEGATIVE)
[2018-05-16] MEDS: Levalbuterol 0.63 MG/3 ML Inhal Soln UD IH SCH ×6 (01:15→21:55)
[2018-05-16] MEDS: MethylPREDNISolone 40 mg Vial IVP SCH ×3 (06:16→21:07)
[2018-05-16 08:10] LABS: ARTERIAL BLOOD GAS HCO3 26.6 mmol/L (21-28); ARTERIAL BLOOD GAS HEMOGLOBIN 9.8 g/dL (11.7-17.4); ARTERIAL BLOOD GAS O2 CAPACITY 13.6 mL/dl (16-24); ARTERIAL BLOOD GAS O2 SAT 95.9 % (95-98); ARTERIAL BLOOD GAS PCO2 41 mm/Hg (35-45); ARTERIAL BLOOD GAS PH 7.42 (7.35-7.45); ARTERIAL BLOOD GAS TCO2 27.9 mmol.L (22-28)
--- NOTE | 2018-05-16 09:17 | PN ---
DATE: 05/15/2018 She had blood tests done, it was 9.2 white count, 10.3 hemoglobin, 32.7 hematocrit with 341 platelets. She has a lactate of 0.9. She had sodium 140, potassium 3.7, BUN 16, creatinine 0.7, calcium is 9, magnesium 2, total bili is 0.3, AST is 27, ALT is 37, alk phos is 60. Troponin I is less than 0.01, total protein 7.5 and the urine was trace blood. She had a chest x-ray and had CAT scan of the abdomen and pelvis that was pending. So I saw her this morning. This is the next day. She is doing well, sitting up in bed. She is hungry. No more nausea, vomiting. No more abdominal pain. No more diarrhea. She is in good spirits. PHYSICAL EXAMINATION: VITAL SIGNS: She has 98.4 temperature, 84 pulse, 113/64 blood pressure, 20 respiratory rate, 96% O2 sat on room air. HEENT: Head is atraumatic, normocephalic. HEART: Regular rate. LUNGS: Decreased breath sounds, but clear. ABDOMEN: Soft, obese, nontender. Positive bowel sounds. No guarding, no rebound or CVA tenderness. EXTREMITIES: No edema. A very good exam. She is on Protonix IV and IV fluids. I think it made a big difference. She had lab today, was at 7.2 white count, 9.5 hemoglobin, 31.1 hematocrit with 327 platelets. She has 140 sodium, potassium 3.6, BUN 15, creatinine 0.7, GFR is greater than 60, sugar is 85, calcium is 8.3, total bili is 0.3, AST is 25, ALT is 32, alk phos 46, total protein 6.5. So, my plan is if the chest x-ray and abdominal CAT scan are negative, which I assume they are from the ER doctor's notes, I will discharge her later today after she eats breakfast. She is now on a regular diet. I will await a call from the nursing later letting me know about the CAT scan, chest x-ray results and also how she did eating. If she is not throwing up, I will discharge her later today and this is hopefully a discharge summary on Nehal Dilip, who came in for viral gastroenteritis. Praveen oH DO [facility] # [id number]
[2018-05-16] MEDS: Sodium Chloride 0.45% 1,000 ML IV SCH (09:35)
--- NOTE | 2018-05-16 11:33 | CT ---
PROCEDURE: CT Chest with contrast (Pulmonary Angiogram) HISTORY: Elevated D Dimer COMPARISON: None available. TECHNIQUE: Axial computed tomography images were obtained of the chest in the pulmonary arterial phase of enhancement. Coronal and sagittal reformatted images were created and reviewed. Intravenous contrast dose: Radiation dose: Total exam DLP = mGy-cm. This CT exam was performed using one or more of the following dose reduction techniques: Automated exposure control, adjustment of the mA and/or kV according to patient size, and/or use of iterative reconstruction technique. FINDINGS: PULMONARY ARTERIES: Unremarkable. No pulmonary embolism. AORTA: No acute findings. No thoracic aortic aneurysm. LUNGS: Unremarkable. No nodule, mass or pulmonary consolidation. PLEURAL SPACES: Unremarkable. No effusion or pneuomothorax. HEART: Unremarkable. No cardiomegaly. No significant pericardial effusion. LYMPH NODES: No lymphadenopathy. BONES, CHEST WALL: Unremarkable. No fracture or destructive lesion OTHER FINDINGS: Unremarkable. IMPRESSION: Unremarkable CT pulmonary angiogram. No pulmonary embolus.
--- NOTE | 2018-05-16 12:13 | PN ---
DATE: 05/16/2018 I saw her sitting up in bed. She has oxygen on. She is getting DuoNebs. She is on IV fluids at 80 mL an hour. She has got Ativan; morphine for pain, which I will decrease; Protonix. She is on Solu-Medrol 30 now, Toradol and Xopenex. She came in with a viral gastritis picture and within 24 hours after increasing her food to try and discharge her, she went in to acute asthma, COPD, anxiety, pain, nausea and vomiting. So here we are, back to sitting in bed, feeling good again, but she is on n.p.o. with clear fluids. I am not going to increase the diet until GI states. I will decrease the pain medications, Solu-Medrol as per the welding supervisor. She has a 140 sodium, potassium 3.6, BUN 50, creatinine 0.7. The last sugar was 94. Troponin was less than 0.01. She has a 7.2 white count, 9.5 hemoglobin and 327 platelets. She is having multiple issues now. Also, she is going through a whole lot of anxiety. I am going to see what GI has to say about her nausea and vomiting and get their opinion. She was on a cruise ship and she is here with nausea, vomiting, viral gastroenteritis, acute COPD, asthma, anxiety. We will see how she does, hopefully one more day. Praveen Ho DO
--- NOTE | 2018-05-16 12:43 | CP.PCM.PN ---
<NaaDarinel - Last Filed: 05/16/18 12:40> Subjective - Date & Time of Evaluation Date of Evaluation: 05/16/18 Time of Evaluation: 12:00 - Subjective Subjective: PGY5 GI Fellow Progress Note Patient seen and examined bedside this afternoon. After our evaluation yesterday , patient developed SOB and felt very anxious, may have had panic attack. She was started on breathing treatment and steroid treatment. She had nausea last night and vomited once. Patient states she is feeling very well and is eager to go home. She is also eager to eat more solid food. Denies any nausea at this time. 12 system ROS performed and negative except where stated. Objective - Vital Signs/Intake and Output Vital Signs (last 24 hours): Temp Pulse Resp BP Pulse Ox 98.4 F 64 20 123/63 97 05/16/18 06:00 05/16/18 06:00 05/16/18 06:00 05/16/18 06:00 05/16/18 06:00 Intake and Output: 05/16/18 05/16/18 06:59 18:59 Intake Total 0 Balance 0 - Medications Medications: Current Medications Sodium Chloride (Sodium Chloride 0.45%) 1,000 mls @ 80 mls/hr IV .[id number] [facility] Last Admin: 05/16/18 09:35 Dose: 80 mls/hr Ketorolac Tromethamine (Toradol) 30 mg IVP Q6 PRN PRN Reason: Pain, moderate (4-7) Last Admin: 05/15/18 16:03 Dose: 30 mg Levalbuterol HCl (Xopenex) 0.63 mg IH [id number] [facility] Last Admin: 05/16/18 11:59 Dose: 0.63 mg Lorazepam (Ativan) 0.5 mg PO Q8 PRN; Protocol PRN Reason: Anxiety Last Admin: 05/16/18 00:04 Dose: 0.5 mg Methylprednisolone (Solu-Medrol) 30 mg IVP Q12 [facility] Last Admin: 05/16/18 09:30 Dose: Not Given Pantoprazole Sodium (Protonix Inj) 40 mg IVP DAILY [facility] Last Admin: 05/15/18 10:15 Dose: 40 mg - Labs Labs: PT 12.4 SECONDS (9.4-12.5) 05/14/18 18:10 INR 1.09 (0.93-1.08) H 05/14/18 18:10 APTT 26.9 Seconds (25.1-36.5) 05/14/18 18:10 - Constitutional Appears: Non-toxic, No Acute Distress - Eye Exam Eye Exam: EOMI, PERRL - ENT Exam ENT Exam: Mucous Membranes Moist - Respiratory Exam Respiratory Exam: Wheezes. absent: Clear to Ausculation Bilateral, Rales, Rhonchi - Cardiovascular Exam Cardiovascular Exam: RRR, +S1, +S2 - GI/Abdominal Exam GI & Abdominal Exam: Soft, Normal Bowel Sounds. absent: Distended, Firm, Guarding, Rigid, Tenderness, Organomegaly - Extremities Exam Extremities Exam: Normal Inspection. absent: Pedal Edema - Neurological Exam Neurological Exam: Alert, Awake, Oriented x3 - Psychiatric Exam Psychiatric exam: Normal Affect, Normal Mood - Skin Skin Exam: Dry, Warm Assessment and Plan - Assessment and Plan (Free Text) Assessment: Patient is a 42yo female with PMHx significant for asthma and IBS who presented to the ED from a cruise ship for nausea, vomiting and abdominal pain -Abdominal pain and nausea/vomiting Plan: -Patient's abdominal pain has resolved at time of examination and she is eager to eat -Recommend advancing diet to regular diet - bland food, no citrus -OK for D/C from GI standpoint with outpatient follow up as needed with patient' s GI in [place] <Greg Sotelo - Last Filed: 05/16/18 13:27> Objective - Vital Signs/Intake and Output Vital Signs (last 24 hours): Temp Pulse Resp BP Pulse Ox 98.4 F 64 20 123/63 97 05/16/18 06:00 05/16/18 06:00 05/16/18 06:00 05/16/18 06:00 05/16/18 06:00 Intake and Output: 05/16/18 05/16/18 06:59 18:59 Intake Total 0 Balance 0 - Medications Medications: Current Medications Sodium Chloride (Sodium Chloride 0.45%) 1,000 mls @ 80 mls/hr IV .[id number] [facility] Last Admin: 05/16/18 09:35 Dose: 80 mls/hr Ketorolac Tromethamine (Toradol) 30 mg IVP Q6 PRN PRN Reason: Pain, moderate (4-7) Last Admin: 05/15/18 16:03 Dose: 30 mg Levalbuterol HCl (Xopenex) 0.63 mg IH [id number] [facility] Last Admin: 05/16/18 11:59 Dose: 0.63 mg Lorazepam (Ativan) 0.5 mg PO Q8 PRN; Protocol PRN Reason: Anxiety Last Admin: 05/16/18 00:04 Dose: 0.5 mg Methylprednisolone (Solu-Medrol) 30 mg IVP Q12 [facility] Last Admin: 05/16/18 09:30 Dose: Not Given Pantoprazole Sodium (Protonix Inj) 40 mg IVP DAILY [facility] Last Admin: 05/16/18 09:30 Dose: 40 mg - Labs Labs: PT 12.4 SECONDS (9.4-12.5) 05/14/18 18:10 INR 1.09 (0.93-1.08) H 05/14/18 18:10 APTT 26.9 Seconds (25.1-36.5) 05/14/18 18:10 Attending/Attestation - Attestation I have personally seen and examined this patient.: Yes I have fully participated in the care of the patient.: Yes I have reviewed all pertinent clinical information, including history, physical exam and plan: Yes Notes (Text): 05/16/18 13:27 42 year old female who presents with nausea, vomiting and abdominal pain, now resolved. CT unremarkable. Continue PPI. diet as tolerated. Will sign off.
--- NOTE | 2018-05-16 13:56 | CON ---
DATE: 05/16/2018 PULMONARY CONSULTATION REASON FOR CONSULTATION: Asthma. REFERRING PHYSICIAN: Dr. Praveen Ho. History is obtained via extensive discussion with the night nurse. I have also reviewed the chart at length, and discussed the case with the patient at length. The patient is a 42-year-old female, with past medical history significant for asthma, irritable bowel syndrome who presents to [facility] with a 2-day history of worsening nausea, vomiting, diarrhea and abdominal pain. The patient denies blood in her stool. However, she did complain of significant fatigue in the Emergency Room. She was thus admitted for additional evaluation. Again, I did discuss the case with the night nurse at length. Apparently, yesterday, the patient did experience shortness of breath and wheezing. A rapid response was called. I did review those notes. The patient was placed on frequent nebulizer treatments and intravenous steroids. This morning, she states to feeling significantly better, and is not short of breath. There is no history of cough or sputum production. There is no history of chest pain, coughing up of blood or chest pain - made worse with deep respirations. The patient did present to [facility] with low-grade fevers. No history of chills or infectious exposure. No history of night sweats, weight loss or appetite change prior to the above events. No history of leg or calf pains. No history of syncope or diaphoresis. No history of recent travel or trauma. REVIEW OF SYSTEMS: No acute urinary symptoms. No new musculoskeletal complaints. Rest of the review of systems is negative. ALLERGIES: NO KNOWN ALLERGIES. SOCIAL HISTORY: Negative for tobacco, negative for alcohol. FAMILY HISTORY: No inheritable diseases. HOME MEDICATIONS: Include Bentyl, albuterol HFA and Protonix. PHYSICAL EXAMINATION: GENERAL: The patient appears quite comfortable this morning. She is not short of breath at rest. VITAL SIGNS: Temperature is 98.4, pulse 84, respirations 18, blood pressure 113/64. Oxygen saturation on room air is 97%. HEENT: Normocephalic, atraumatic. No JVD. CARDIOVASCULAR: Positive S1, S2. No S3 gallop. LUNGS: Clear bilaterally this morning. EXTREMITIES: No clubbing, cyanosis or edema. Calves are nontender to palpation. GI: Abdomen is soft, nontender and nondistended. Bowel sounds are positive. SKIN: No acute rash. NEUROLOGIC: Exam limited at the present time. PERTINENT LABORATORY DATA: CAT scan of the chest was done as an angiogram protocol. There is no pulmonary embolism seen. There are no acute consolidations or nodules seen. There is no lymphadenopathy. Arterial blood gas was also done yesterday on nasal cannula. Results are: The pH 7.25, pCO2 of 57 and pO2 of 82. CBC: White count 7.2K, hemoglobin 9.5, hematocrit 31.1, platelets of 327,000. IMPRESSION: 1. Rule out gastroenteritis. 2. History of irritable bowel syndrome. 3. Asthma. 4. Acute bronchospasm - resolving. 5. Acute respiratory insufficiency. 6. Mild anemia. PLAN: Again, I did discuss the case with the night nurse at length. I have also reviewed the chart at length, and discussed the case with the patient at length. The patient presents to [facility] with a two-day history of worsening abdominal pain, along with nausea, vomiting and diarrhea. As above, in addition, she was experiencing significant fatigue. She was thus admitted for additional evaluation and treatment. Apparently, yesterday afternoon, the patient did experience shortness of breath and wheezing. The patient was placed on nebulizer treatments and intravenous steroids. She is significantly improved this morning. The night nurse also confirms the patient's significant improvement. On physical exam this morning, the patient's lungs are clear. Oxygen saturation on room air is 97%. The patient's arterial blood gas from yesterday is noted above. I will repeat an arterial blood gas this morning. The patient also had a CT scan of the chest - done as a angiogram protocol. There is no pulmonary embolism noted. There are no acute significant abnormalities noted. The patient also states there is significant decrease in her abdominal pain, as well as a significant decrease in her gastrointestinal symptoms. She is hungry this morning and asking for food. GI evaluation is ongoing. Input is noted. The clinical status of the patient is significantly improved - compared to yesterday. I will continue with the current nebulizer treatments and decrease the intravenous steroids this morning. I will discuss the above with Dr. Ho this morning. Thank you very much for this pulmonary consultation. Xiang Silverman MD MTDD
[2018-05-17] MEDS: Levalbuterol 0.63 MG/3 ML Inhal Soln UD IH SCH ×4 (00:25→11:06)
[2018-05-17] MEDS ORDERED: MethylPREDNISolone 40 mg Vial IVP STA (01:01)
--- NOTE | 2018-05-17 03:21 | CP.PCM.PN ---
Subjective - Date & Time of Evaluation Date of Evaluation: 05/17/18 Time of Evaluation: 01:00 - Subjective Subjective: Patient seen for her c/o shortness of breath even after she was given a nebulizer Rx already ordered. She denies any c/o chest pain,cough,nausea,vomiting or any other symptoms. Patient was admitted for abdominal pain ,nausea,vomiting and weakness. She is currently on solumedrol twice daily. VS:BP 95/52 T 99.2 P 62 RR 20 O2 sat 90% on R Air PMH: IBS,Asthma,Gerd Objective - Vital Signs/Intake and Output Vital Signs (last 24 hours): Temp Pulse Resp BP Pulse Ox 99.2 F 67 20 95/52 L 90 L 05/17/18 01:07 05/17/18 01:07 05/17/18 01:07 05/17/18 01:07 05/17/18 01:07 Intake and Output: 05/16/18 05/17/18 18:59 06:59 Intake Total 540 420 Balance 540 420 - Medications Medications: Current Medications Sodium Chloride (Sodium Chloride 0.45%) 1,000 mls @ 80 mls/hr IV .[id number] [facility] Last Admin: 05/16/18 09:35 Dose: 80 mls/hr Ketorolac Tromethamine (Toradol) 30 mg IVP Q6 PRN PRN Reason: Pain, moderate (4-7) Last Admin: 05/16/18 23:00 Dose: 30 mg Levalbuterol HCl (Xopenex) 0.63 mg IH [id number] [facility] Last Admin: 05/17/18 00:25 Dose: 0.63 mg Lorazepam (Ativan) 0.5 mg PO Q8 PRN; Protocol PRN Reason: Anxiety Last Admin: 05/16/18 00:04 Dose: 0.5 mg Methylprednisolone (Solu-Medrol) 30 mg IVP Q12 [facility] Last Admin: 05/16/18 21:07 Dose: 30 mg Pantoprazole Sodium (Protonix Inj) 40 mg IVP DAILY [facility] Last Admin: 05/16/18 09:30 Dose: 40 mg - Labs Labs: PT 12.4 SECONDS (9.4-12.5) 05/14/18 18:10 INR 1.09 (0.93-1.08) H 05/14/18 18:10 APTT 26.9 Seconds (25.1-36.5) 05/14/18 18:10 - Constitutional Appears: No Acute Distress, Other (Pt is obese) - Head Exam Head Exam: ATRAUMATIC, NORMAL INSPECTION, NORMOCEPHALIC - Eye Exam Eye Exam: Normal appearance, PERRL - ENT Exam ENT Exam: Mucous Membranes Moist - Neck Exam Neck Exam: Normal Inspection - Respiratory Exam Respiratory Exam: Decreased Breath Sounds (Breath sounds are distant bilaterally ), NORMAL BREATHING PATTERN. absent: Accessory Muscle Use - Cardiovascular Exam Cardiovascular Exam: REGULAR RHYTHM, +S1, +S2 - GI/Abdominal Exam GI & Abdominal Exam: Soft, Normal Bowel Sounds. absent: Tenderness - Extremities Exam Extremities Exam: Normal Inspection. absent: Calf Tenderness, Pedal Edema - Neurological Exam Neurological Exam: Alert, Oriented x3 - Psychiatric Exam Psychiatric exam: Anxious - Skin Skin Exam: Dry, Warm Assessment and Plan - Assessment and Plan (Free Text) Assessment: Exacerbation of Asthma Plan: Solumedrol 30 mg ordered iv push stat. At 2AM: O2 sat improved to 98%. Pt is sleeping comfortably
[2018-05-17 07:35] LABS: HEMOGLOBIN 9.5 g/dL (12.0-16.0); MEAN CELL VOLUME 77.8 fl (80.0-105.0); MEAN CORPUSCULAR HEMOGLOBIN 24.5 pg (25.0-35.0); MEAN CORPUSCULAR HGB CONC 31.5 g/dl (31.0-37.0); MEAN PLATELET VOLUME 8.2 fl (7.0-11.0); RBC 3.88 10^6/uL (3.5-6.1); RED CELL DISTRIBUTION WIDTH 16.1 % (11.5-14.5); WHITE BLOOD COUNT 6.6 10^3/ul (4.5-11.0)
[2018-05-17 07:56] LABS: ALB/GLOB RATIO 1.2 (1.1-1.8); ALBUMIN 3.5 g/dL (3.0-4.8); ALT/SGPT 32 U/L (7-56); AST/SGOT 27 U/L (14-36); BLOOD UREA NITROGEN 11 mg/dL (7-21); CALCIUM 8.5 mg/dL (8.4-10.5); GFR NON-AFRICAN AMERICAN > 60
--- NOTE | 2018-05-17 08:11 | PN ---
DATE: 05/17/2018 PULMONARY NOTE SUBJECTIVE: The patient appears very comfortable this morning. She is not short of breath at rest. PHYSICAL EXAMINATION: VITAL SIGNS: (Last noted in the computer): Last temperature recorded is 99.2, pulse is 67, respiratory rate is approximately 18, last blood pressure recorded 95/52. Oxygen saturation on nasal cannula is 98%. HEENT: Normocephalic, atraumatic. No JVD. CARDIOVASCULAR: Positive S1, S2. No S3 gallop. LUNGS: Clear bilaterally. EXTREMITIES: No clubbing, cyanosis or edema. Calves are nontender to palpation. GI: Abdomen is soft, nontender and nondistended. Bowel sounds are positive. SKIN: No acute rash. NEUROLOGIC: Limited at the present time. PERTINENT LABORATORY DATA: Arterial blood gas was done on room air yesterday. Results are: PH is 7.42, pCO2 of 41, pO2 of 65. IMPRESSION: 1. Rule out gastroenteritis. 2. History of irritable bowel syndrome. 3. Asthma. 4. Acute bronchospasm - resolved. 5. Acute respiratory insufficiency - resolved. 6. Mild anemia. PLAN: The patient appears very comfortable this morning. She is not short of breath at rest. She does state to feeling much much better overall, and is asking to go home. She offers no pulmonary complaints at the present time. In addition, she states that her gastrointestinal symptoms are almost gone. On physical exam, her lungs remain clear. In addition, the alveolar-arterial gradient is less. I will continue with the current nebulizer treatments and change to oral steroids this morning. I did review the arterial blood gas as above. There is now normalization of the pH and pCO2. There was a mild increase in the alveolar-arterial gradient - which again is resolving. Clinical status of the patient is significantly improved overall. Input by GI is noted. I will discuss the above with Dr. Ho this morning. Xiang Silverman MD MTDHemant
[2018-05-17 08:40] VITALS: BP 112/70; PULSE 98; TEMP 98; O2SAT 100
--- NOTE | 2018-05-17 08:54 | CON ---
DATE: 05/16/2018 HISTORY OF PRESENT ILLNESS: The patient is a 42-year-old -[place] female with not known previous psychiatric history, self-reported history of anxiety. The patient reported that she was on cruise, the patient started to have generalized fatigue, also has abdominal pain. The patient reported that whenever she feels sick from her irritable bowel syndrome, she would feels very anxious. Psych consult was called for evaluation of anxiety. The patient was seen and examined today. The patient presented calm, cooperative. The patient reported that she feels 100% better and she reported that she is at her baseline. The patient reported that whenever she feels sick from her medical issues, she would start experience feeling of anxiety, restlessness, and the patient needs to walk in order to feel better. The patient denied history of being depressed. Denied history of suicidal attempts. Denied history of being admitted to the Psychiatric Inpatient Unit. The patient reported no signs of psychosis. The patient denied thoughts of harming herself or others. Vital signs are stable. Temperature 98.5, pulse is 100, blood pressure 116/69, respirations 20, and saturation is 100. MEDICATIONS: Reviewed. The patient is on Toradol, Zenapax, Ativan 0.5 mg every 8 hours p.r.n. for anxiety, Solu-Medrol, Protonix, and sodium chloride. LABORATORY DATA: Reviewed. Toxicology was positive for opioids as well as cocaine, reports also reviewed. Chest CT scan was done on 05/15/2018, unremarkable CT pulmonary angiogram, no pulmonary embolism. Electrocardiogram yesterday, sinus tachycardia, otherwise normal EKG. Chest x-ray was also done, no active disease. MENTAL STATUS EXAMINATION: The patient presented to be alert and oriented, pleasant, cooperative. Good eye contact. Speech was somewhat overproductive. Mood described "I feel better." Affect was reactive, mood congruent. Thought process was coherent and goal directed. Thought content, the patient denied visual, auditory, or tactile hallucinations. Denied paranoid ideation. The patient denied thoughts of harming herself or others. Denied intent or plan. Insight and judgment seem to be improving. Impulses are well controlled. IMPRESSION: Rule out anxiety due to general medical condition. The patient also was positive for cocaine and opioids. It could contribute to her presentation of anxiety. PLAN: Continue Ativan as needed. The patient does not present to be psychotic or disorganized or in danger to self or others. Social work evaluation because the patient reported that she lives in [place] and she was wondering how she will go back to [place]. 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 The patient is no imminent danger to self or others. The patient needs to follow up with outpatient provider in the area where she lives. This senior technical writer will sign off. Should you have any questions, give me a call back Sandra Mark MD
--- NOTE | 2018-05-17 15:31 | DS ---
HISTORY OF PRESENT ILLNESS: She came in [place] the cruise ship. She had a viral gastroenteritis, nausea, vomiting, abdominal pain and she had anxiety and COPD. She finally did well enough that she could be discharged today. She will be on prednisone 40 mg for 3 days and 30 mg for 3 days and so on. She will have to follow up with her doctor on the outpatient. She is doing better. No chest pain. No shortness of breath. No abdominal pain. She ate breakfast. She is in good spirits. PHYSICAL EXAMINATION: VITAL SIGNS: 99.2 temp, 67 pulse, 95/52 blood pressure, 20 respiratory rate, 95% O2 sat on room air. HEENT: Head is atraumatic, normocephalic. HEART: Regular rate. LUNGS: Decreased breath sounds, but clear. ABDOMEN: Soft, obese. EXTREMITIES: No edema. I discussed with Pulmonology. She could be discharged today on prednisone. LABORATORY DATA: She has a 6.6 white count, 9.5 hemoglobin, 30.2 hematocrit with a 304 platelets. She has a 138 sodium, potassium 4.1, BUN 11, creatinine 0.6, GFR is greater than 60, sugar is 131, calcium is 8.5, AST is 27, ALT is 32, alk phos is 40, total protein 6.1, troponin is less than 0.01. ASSESSMENT AND PLAN: She will be discharged back to her [place], [place]. She will be following up with her doctors. I will make sure she gets her mediations before she leaves. She is from the cruise ship. Praveen Ho DO
== END 2018-05-17 12:37 | disposition home or self-care (01) | DRG 392 ==
LOC: ED 16:09 → ERH 21:02 → 5RSO 05-15 00:14 → OBSVTOIN 05-15 13:19
PROVIDERS: ADMIT Family Medicine; ATTEND Family Medicine
DX: A08.4 Viral intestinal infection, unspecified (principal); J45.901 Unspecified asthma with (acute) exacerbation; E86.0 Dehydration; D64.9 Anemia, unspecified; F17.210 Nicotine dependence, cigarettes, uncomplicated; F41.9 Anxiety disorder, unspecified; J44.9 Chronic obstructive pulmonary disease, unspecified; K21.9 Gastro-esophageal reflux disease without esophagitis; K58.9 Irritable bowel syndrome, unspecified; F32.9 Major depressive disorder, single episode, unspecified